=== PATIENT | male | born 1980 | race Hispanic/Latino ===

== ENCOUNTER → 2022-09-24 | Day surgery (SDC) | payer OTHER ==
[~2022-09-24] MED LIST: FENTANYL CITRATE/PF 100MCG/2 ML INJ ONE; MIDAZOLAM HCL 2 MG/2 ML VIAL ONE; OR PHACO EYE KIT ONE; PREOP PHACO EYE KIT ONE
[2022-09-24 08:50] VITALS: BP 117/80
== END | disposition home or self-care (01) ==
LOC: OR 07:30
PROVIDERS: ATTEND Ophthalmology
DX: H25.11 Age-related nuclear cataract, right eye (principal)
CPT/HCPCS: 66984; J2250; J3010; V2632

== ENCOUNTER → 2022-10-08 | Day surgery (SDC) | payer OTHER ==
[~2022-10-08] MED LIST changes: +LACTATED RINGER'S 1,000 ML ONE; +LIDOCAINE HCL 1% 2 ML AMP ONE
[2022-10-08 13:00] VITALS: BP 117/81
== END | disposition home or self-care (01) ==
LOC: OR 09:03
PROVIDERS: ATTEND Ophthalmology
DX: H25.12 Age-related nuclear cataract, left eye (principal)
CPT/HCPCS: 66984; J2001; J2250; J3010; J7121; V2632